=== PATIENT | male | born 1970 | race American Indian/Alaskan Native ===

== ENCOUNTER 2016-09-13 13:30 | Emergency (ER) | payer OTHER ==
--- NOTE | 2016-09-13 16:33 | Emergency Department Report ---
ED Extremity Problem HPI - General Chief complaint: Extremity Injury, Lower Stated complaint: RT KNEE PAIN Time Seen by Provider: 09/13/16 16:22 Source: patient Mode of arrival: Wheelchair Limitations: Physical Limitation - History of Present Illness Initial comments: PT c/o R knee and swelling since evening. 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 PT states he knee has hurt before but he usually does not have swelling. PT is not sure if this is related to him being out of his Metformin x 1 month. PT states he has appointment with PCP on Thursday. PT reports urinary frequency MD Complaint: joint paint -: Gradual, days(s) Location: right, lower extremity, knee History of Same: Yes -: Yes arthralgia, No fever Severity scale (0 -10): 10 Quality: constant Consistency: constant Improves with: nothing Worsens with: weight bearing, walking, palpation Associated Symptoms: denies other symptoms. denies: chest pain - Related Data Previous Rx's Medication Instructions Recorded Last Taken Type Acetaminophen/Codeine [Tylenol #3] 1 tab PO Q6H PRN #12 tab 09/13/16 Unknown Rx Ibuprofen [Motrin] 600 mg PO Q8H PRN #15 tablet 09/13/16 Unknown Rx metFORMIN [Glucophage] 500 mg PO BID #10 tablet 09/13/16 Unknown Rx Allergies Allergy/AdvReac Type Severity Reaction Status Date / Time pollen extracts Allergy Unknown Verified 09/13/16 15:44 ED Review of Systems ROS: Stated complaint: RT KNEE PAIN Other details as noted in HPI Comment: All other systems reviewed and negative Constitutional: denies: malaise Cardiovascular: denies: chest pain Endocrine: increased thirst, increased urine Gastrointestinal: denies: abdominal pain, nausea, vomiting Genitourinary: frequency Musculoskeletal: as per HPI, joint swelling Skin: denies: change in color Neurological: abnormal gait (due to R knee pain ) ED Past Medical Hx - Past Medical History Hx Hypertension: Yes Hx Diabetes: Yes - Surgical History Past Surgical History?: No - Social History Smoking Status: Never Smoker Substance Use Type: None - Medications Home Medications: Home Medications Medication Instructions Recorded Confirmed Last Taken Type Acetaminophen/Codeine [Tylenol #3] 1 tab PO Q6H PRN #12 tab 09/13/16 Unknown Rx Ibuprofen [Motrin] 600 mg PO Q8H PRN #15 tablet 09/13/16 Unknown Rx metFORMIN [Glucophage] 500 mg PO BID #10 tablet 09/13/16 Unknown Rx ED Physical Exam - General Limitations: Physical Limitation General appearance: alert, in no apparent distress, obese - Head Head exam: Present: atraumatic, normocephalic, normal inspection - Eye Eye exam: Present: normal appearance, PERRL, EOMI. Absent: conjunctival injection - ENT ENT exam: Present: normal exam, normal external ear exam - Neck Neck exam: Present: normal inspection, full ROM - Respiratory Respiratory exam: Present: normal lung sounds bilaterally. Absent: respiratory distress, chest wall tenderness - Cardiovascular Cardiovascular Exam: Present: normal rhythm, tachycardia (mildly ) - GI/Abdominal GI/Abdominal exam: Present: soft. Absent: distended, tenderness, guarding, rebound - Extremities Exam Extremities exam: Present: normal inspection, tenderness. Absent: full ROM, pedal edema, calf tenderness - Expanded Lower Extremity Exam Right Upper Leg exam: Present: normal inspection. Absent: tenderness Knee exam: Present: normal inspection, tenderness (ant knee ). Absent: full ROM , swelling, deformity, full knee extension Lower Leg exam: Present: normal inspection. Absent: tenderness Ankle exam: Present: normal inspection, full ROM. Absent: tenderness Gait: Positive: unable to bear weight - Back Exam Back exam: Present: normal inspection, full ROM. Absent: tenderness, CVA tenderness (R), CVA tenderness (L), muscle spasm, paraspinal tenderness, vertebral tenderness - Neurological Exam Neurological exam: Present: alert, oriented X3 - Psychiatric Psychiatric exam: Present: normal affect, normal mood - Skin Skin exam: Present: warm, dry, intact, normal color ED Course Vital Signs 09/13/16 09/13/16 09/13/16 15:44 17:13 18:04 Temperature 98 F Pulse Rate 110 H 112 H Respiratory 18 20 20 Rate Blood Pressure 143/90 Blood Pressure 136/83 [Left] O2 Sat by Pulse 100 98 Oximetry - Reevaluation(s) Reevaluation #1: 09/13/16 17:39 PT aware of lab and XR results. PT advised to keep his pcp appointment on Thursday. PT also given verbal instructions to follow up with [facility]. PT has no questions at this time. Reevaluation #2: 09/14/16 PT ambulatory with knee immobilizer in place - Pulse Oximetry Interpretation Digit-Finger Initial Pulse Oximetry Readin Actions Taken: none ED Medical Decision Making - Lab Data Lab Results 09/13/16 09/13/16 Range/Units 16:29 17:00 POC Glucose 82 (70-105) Urine Color Yellow (Yellow) Urine Turbidity Clear (Clear) Urine pH 6.0 (5.0-7.0) Ur Specific Reading 1.018 (1.003-1.030) Urine Protein 100 mg/dl (Negative) mg/dL Urine Glucose (UA) Neg (Negative) mg/dL Urine Ketones Tr (Negative) mg/dL Urine Blood Neg (Negative) Urine Nitrite Neg (Negative) Urine Bilirubin Neg (Negative) Urine Urobilinogen 4.0 (<2.0) mg/dL Ur Leukocyte Esterase Neg (Negative) Urine WBC (Auto) < 1.0 (0.0-6.0) /HPF Urine RBC (Auto) 9.0 (0.0-6.0) /HPF Urine Mucus Few /HPF - Radiology Data Radiology results: report reviewed XR knee r- possible small joint effusion - Differential Diagnosis OA, Hyperglycemia , uti Critical Care Time: No Critical care attestation.: If time is entered above; I have spent that time in minutes in the direct care of this critically ill patient, excluding procedure time. ED Disposition Clinical Impression: Acute pain of right knee, Hematuria Disposition: TO HOME OR SELFCARE Is pt being admited?: No Does the pt Need Aspirin: No Condition: Stable Instructions: Diabetes Mellitus Type 2 in Adults (ED), Acute Hematuria (ED), Knee Effusion (ED), Knee Pain (ED), Knee Immobilizer (ED) Additional Instructions: Keep your pcp appointment on Thursday RICE Follow up with [facility] in 3-5 days No driving or alcohol after taking Tylenol #3 Prescriptions: Acetaminophen/Codeine [Tylenol #3] 1 tab PO Q6H PRN #12 tab PRN Reason: Pain , Severe (7-10) Ibuprofen [Motrin] 600 mg PO Q8H PRN #15 tablet PRN Reason: Pain metFORMIN [Glucophage] 500 mg PO BID #10 tablet Referrals: PRIMARY CARE, [Primary Care Provider] - 3-5 Days NIRAV YEH MD [Staff Physician] - 3-5 Days JUAN LUIS NOEL MD [Staff Physician] - 3-5 Days Forms: Work/School Release Form(ED) Time of Disposition: 17:42
--- NOTE | 2016-09-13 16:51 | XRay Report ---
FINAL REPORT PROCEDURE: Right knee. TECHNIQUE: Three views. HISTORY: Right knee pain and swelling. COMPARISON: No prior studies are available for comparison. FINDINGS: The bones appear intact without fracture or dislocation. The joint spaces appear normal. The soft tissues are unremarkable. There may be a small knee effusion. IMPRESSION: Question small knee effusion. Otherwise normal study.
[2016-09-13] MEDS ORDERED: MOTRIN PO ONE (17:01)
[2016-09-13 17:24] LABS: Bilirubin,Urine NEG (Negative); Blood,Urine NEG (Negative); Ketones,Urine TR mg/dL (Negative); Leukocyte Esterase,Urine NEG (Negative); Mucus,Urine FEW /HPF; Nitrite,Urine NEG (Negative); WBC,Urine < 1.0 /HPF (0.0-6.0)
[2016-09-13 18:05] VITALS: BP 136/83
== END 2016-09-13 18:05 | disposition home or self-care (01) ==
LOC: ED 13:30
DX: M25.561 Pain in right knee (principal); R31.9 Hematuria, unspecified; I10 Essential (primary) hypertension; E11.9 Type 2 diabetes mellitus without complications; Z91.048 Other nonmedicinal substance allergy status; X58.XXXA Exposure to other specified factors, initial encounter; Y93.89 Activity, other specified; Y99.9 Unspecified external cause status; Y92.89 Other specified places as the place of occurrence of the external cause
CPT/HCPCS: 81001; 82962